=== PATIENT | female | born 1985 | race Caucasian/White ===

== ENCOUNTER 2016-06-07 13:51 | Inpatient (IN) | payer BC ==
[~2016-06-07] VITALS: Ht 165.2 cm; Wt 100.5 kg
[~2016-06-07 13:51] MED LIST: BIRTH CONTROL; MOTRIN 600600 MG/TAB PO; NEORAL100 MG/ML PO; NORCO 325 MG-7.1 TAB PO; PEPCID 20MG TAB20 MG PO; PERCOCET 325 MG1 TA2 PO; PRENATAL1 TA1 PO
[2016-06-12] VITALS (19 sets, daily range): BP systolic 106–131; BP diastolic 54–92; PULSE 81–100; TEMP 97.5–98.5
[2016-06-12 06:31] LABS: BASO % 0.3 % (0.0-2.0); EOS # 0.1 (0.0-0.7); EOS % 1.2 % (0-4.0); GRAN % 67.1 % (42.2-75.2); HEMATOCRIT 40.2 % (37.0-47.0); HEMOGLOBIN 13.5 g/dl (12.5-16.0); LYMPH # 2.4 (1.2-3.4); LYMPH % 22.6 % (20.0-51.0); MEAN CELL VOLUME 80 fl (80.0-100.0); MEAN CORPUSCULAR HEMOGLOBIN 27 pg (27.0-31.0); MEAN CORPUSCULAR HGB CONC 34 g/dl (33.0-37.0); MEAN PLATELET VOLUME 11.4 fl (7.4-10.4); MONO # 0.9 (0.1-0.6); MONO % 8.4 % (1.7-9.3); PLATELET COUNT 206 K/mm3 (130-400); RED BLOOD COUNT 5.04 M/mm3 (4.10-5.30); WHITE BLOOD COUNT 10.4 K/mm3 (4.8-10.8)
[2016-06-13 08:11] VITALS: BP 125/73; PULSE 92; TEMP 97.8
[2016-06-13] MEDS ORDERED: PERCOCET 325 MG1 TA2 PO (09:12)
[2016-06-13] MEDS ORDERED: MOTRIN 600600 MG/TAB PO (09:12)
[2016-06-13 17:40] VITALS: BP 113/65; PULSE 79; TEMP 97.4
[2016-06-13 19:30] VITALS: BP 114/74; PULSE 91; TEMP 97.9
[2016-06-14 07:30] VITALS: BP 118/68; PULSE 86; TEMP 97.9
== END 2016-06-14 13:50 | disposition home or self-care (01) | DRG 766 ==
LOC: OB 06-12 05:43 → EDSTATUS 06-18 06:47 → LDRO 06-18 13:51
PROVIDERS: Obstetrics & Gynecology
PROC: 10D00Z1 Extraction of Products of Conception, Low, Open Approach (ICD-10-PCS; principal; 2016-06-12)
DX: O34.211 Maternal care for low transverse scar from previous cesarean delivery (principal); O69.81X0 Labor and delivery complicated by cord around neck, without compression, not applicable or unspecified; N85.8 Other specified noninflammatory disorders of uterus; Z3A.39 39 weeks gestation of pregnancy; Z37.0 Single live birth
CPT/HCPCS: J0690; J1885; J2270; J2405; J2590; J7120